=== PATIENT | female | born 1955 | race African-American/Black ===

== ENCOUNTER → 2017-04-11 | Outpatient (CLI) | payer OTHER ==
--- NOTE | 2017-04-11 17:55 | RAD ---
History: Fell off horse today. Left wrist and forearm were caught. Bruising. Comparison: None. Findings: AP and lateral views of the left forearm. Examination is not optimal to evaluate the elbow. No acute fracture or acute malalignment is identified in the left forearm. PA, lateral, and oblique views of the left wrist. No acute fracture or dislocation is identified. Mild dorsal wrist soft tissue swelling is seen.. Impression: 1. No acute osseous traumatic injury identified in the left forearm or left wrist. 2. Mild soft tissue swelling of the wrist. Electronically signed by: Jovan Hensley MD (04/11/2017 5:52 PM) [facility]
== END | disposition home or self-care (01) ==
LOC: DXRAD 17:05
PROVIDERS: ATTEND Specialist
DX: M79.602 Pain in left arm (principal); M25.432 Effusion, left wrist; V80.010A Animal-rider injured by fall from or being thrown from horse in noncollision accident, initial encounter; Y93.52 Activity, horseback riding; Y92.89 Other specified places as the place of occurrence of the external cause; Y99.8 Other external cause status
CPT/HCPCS: 73090; 73110

== ENCOUNTER 2019-08-19 18:41 | Emergency (ER) | payer OTHER ==
[~2019-08-19] VITALS: Ht 170.2 cm; Wt 62.4 kg
--- NOTE | 2019-08-19 18:48 | PHYS DOC ---
Adult General Chief Complaint Chief Complaint: FOOT INJURY PAIN...." My horse stepped on my Rt. ankle and foot as I was putting her up... it was about 2:30 ( 1430).. I still can't put any weight on it..." HPI HPI Patient is a 64 year old female who presents with above hx and complaints that her horse stepped on her Rt. ankle and foot. Horse is 16 hands. Patient did have on her riding boots however has been unable to bear weight since injury at approximately 1430 hrs. Patient has obvious swelling of right foot and ankle. Patient localizes pain in mid foot and lateral malleolus. Distal neurovascular appears to be grossly equal to left foot. No other injury reported. Patient is normally healthy. Has taken Tylenol with no relief in pain. Pt. follow s with Dr. Sprague. Review of Systems Review of Systems Constitutional: Denies fever or chills [] Eyes: Denies change in visual acuity, redness, or eye pain [] HENT: Denies nasal congestion or sore throat [] Respiratory: Denies cough or shortness of breath [] Cardiovascular: No additional information not addressed in HPI [] GI: Denies abdominal pain, nausea, vomiting, bloody stools or diarrhea [] : Denies dysuria or hematuria [] Musculoskeletal: Complains of right ankle and foot pain Integument: Denies rash or skin lesions [] Neurologic: Denies headache, focal weakness or sensory changes [] Endocrine: Denies polyuria or polydipsia [] All other systems were reviewed and found to be within normal limits, except as documented in this note. Family History Family History Noncontributory Current Medications Current Medications See nursing for home meds Allergies Allergies Allergic to aspirin potassium and erythromycin Physical Exam Physical Exam Constitutional: Well developed, well nourished, moderate acute distress, non- toxic appearance. [] HENT: Normocephalic, atraumatic, bilateral external ears normal, oropharynx moist, no oral exudates, nose normal. [] Eyes: PERRLA, EOMI, conjunctiva normal, no discharge. [] Neck: Normal range of motion, no tenderness, supple, no stridor. [] Cardiovascular:Heart rate regular rhythm, no murmur [] Lungs & Thorax: Bilateral breath sounds clear to auscultation [] Abdomen: Bowel sounds normal, soft, no tenderness, no masses, no pulsatile masses. [] Skin: Warm, dry, no erythema, no rash. [] Back: No tenderness, no CVA tenderness. [] Extremities: No tenderness, no cyanosis, no clubbing, ROM intact, no edema. [] Except findings in right ankle and foot as per history of present illness Neurologic: Alert and oriented X 3, normal motor function, normal sensory function, no focal deficits noted. [] Psychologic: Affect anxious, judgement normal, mood normal. [] EKG EKG [] Radiology/Procedures Radiology/Procedures [][address] [address] IMAGING REPORT Signed PATIENT: TONNY [place] ACCOUNT: [id number] : 1955 LOCATION: ER AGE: 64 SEX: F EXAM STATUS: REG ER ORD. PHYSICIAN: ZAIDA OCHOA MD REASON: Horse stepped on ankle and foot, pain with swelling PROCEDURE: ANKLE RIGHT 3V Right ankle 3 views 08/19/2019. Reason for exam: Pain after a horse stepped on foot and ankle. No fracture or dislocation is seen. There is no apparent joint effusion. IMPRESSION: No acute abnormality. Right foot 3 views: No fracture or dislocation is seen. There is no apparent joint narrowing or foreign body. IMPRESSION: No acute abnormality. Electronically signed by: Angel Brand Jr., MD (08/19/2019 7:27 PM) [facility] DICTATED AND SIGNED BY: ANGEL BRAND Jr, MD DATE: 08/19/191926 CC: ZAIDA OCHOA MD; CARIDAD SPRAGUE MD ~ On my review of x-ray there is a area of ossification that may be a chip-this is same area where patient has pain focus. Course & Med Decision Making Course & Med Decision Making Pertinent Labs and Imaging studies reviewed. (See chart for details) Patient to wear splint and use crutches. Keep ankle and foot elevated. Ice packs as needed. Take Tylenol and ibuprofen for pain. For marked pain may take Vicoprofen. Consider repeat x-ray of right ankle and foot in 2 weeks to see if she has developed a bone callus and area of questionable chip. Distal neurovascular intact after application of splint. Patient instructed if has compromised circulation to toes to unwrap and rewrap the splint. Return if any concerns. Impression: 1. Contusion/crush injury right foot and ankle 2. Sprain strain right foot and ankle Dragon Disclaimer Dragon Disclaimer This electronic medical record was generated, in whole or in part, using a voice recognition dictation system. Departure Departure: Disposition: 01 HOME/RESIDENCE PRIOR TO ADM Condition: STABLE Referrals: CARIDAD SPRAGUE MD (PCP) Scripts Hydrocodone/Ibuprofen (HYDROCODONE-IBUPROFEN 7.5-200 ) 1 Each Tablet 1 TAB PO PRN Q6HRS PRN for PAIN, #30 TAB 0 Refills Prov: ZAIDA OCHOA MD 08/19/19 Louise Disclaimer This chart was dictated in whole or in part using Voice Recognition software in a busy, high-work load, and often noisy Emergency Department environment. It may contain unintended and wholly unrecognized errors or omissions. ZAIDA OCHOA MD Aug 19, 2019 18:48
[2019-08-19] MEDS ORDERED: HYDR-1179 PO (19:08)
--- NOTE | 2019-08-19 19:29 | RAD ---
Right ankle 3 views 08/19/2019. Reason for exam: Pain after a horse stepped on foot and ankle. No fracture or dislocation is seen. There is no apparent joint effusion. IMPRESSION: No acute abnormality. Right foot 3 views: No fracture or dislocation is seen. There is no apparent joint narrowing or foreign body. IMPRESSION: No acute abnormality. Electronically signed by: Bernard Brand Jr., MD (08/19/2019 7:27 PM) [facility]
--- NOTE | 2019-08-19 19:29 | RAD ---
Right ankle 3 views 08/19/2019. Reason for exam: Pain after a horse stepped on foot and ankle. No fracture or dislocation is seen. There is no apparent joint effusion. IMPRESSION: No acute abnormality. Right foot 3 views: No fracture or dislocation is seen. There is no apparent joint narrowing or foreign body. IMPRESSION: No acute abnormality. Electronically signed by: Bernard Brand Jr., MD (08/19/2019 7:27 PM) [facility]
[2019-08-19 20:19] VITALS: BP 122/81
[2019-08-19] MEDS ORDERED: HYDROcodon/IBUPROFEN 7.5/200MG 1 TAB TABLET ONE (20:35)
[2019-08-19] MEDS ORDERED: HYDROcodon/IBUPROFEN 7.5/200MG 1 TAB TABLET PO ONE (20:45)
== END 2019-08-19 20:40 | disposition home or self-care (01) ==
LOC: ER 18:41
DX: S93.601A Unspecified sprain of right foot, initial encounter (principal); S93.401A Sprain of unspecified ligament of right ankle, initial encounter; W55.19XA Other contact with horse, initial encounter; Y93.89 Activity, other specified; Y92.89 Other specified places as the place of occurrence of the external cause; Y99.8 Other external cause status
CPT/HCPCS: 29515; 73610; 73630; 99284